=== PATIENT | male | born 1955 | race Caucasian/White ===

== ENCOUNTER 2017-10-25 18:03 | Emergency (ER) | payer OTHER ==
[~2017-10-25] VITALS: Ht 177.8 cm; Wt 97.0 kg
[~2017-10-25 18:03] MED LIST: ANTI-ANXIETY PO; ANTI-HYPERTENSIVE PO; MOTR100T PO; ROBA750T3 PO; SYNT25TA PO; TRAM50 PO
[2017-10-25 18:04] VITALS: BP 156/100; PULSE 62; RESP 18; TEMP 97.8; O2SAT 99
[2017-10-25 18:18] VITALS: BP 156/93; PULSE 75; RESP 18; O2SAT 100
[2017-10-25] MEDS ORDERED: KETOROLAC TROMETHAMINE 30 MG/ML (IVP) VIAL IVP ONE (18:30)
[2017-10-25] MEDS ORDERED: SODIUM CHLORIDE 0.9% FLUSH 10 ML FLUSH IV FLUSH PRN (18:30)
--- NOTE | 2017-10-25 18:30 | PD ---
HPI Chief Complaint: Abdominal Pain Time Seen by Provider: 18:22 Travel History International Travel<30 days: No Contact w/Intl Traveler<30days: No Traveled to known affect area: No History of Present Illness HPI 62-year-old male patient with history of hypertension, hypothyroidism, previous DVT, presents to the ER today for left flank pain with radiation down to the left lower abdomen and groin area, currently being rated at 10 out of 10. He states it hurts with standing up and sitting down. He states this started on its own. He and eyes any vomiting, diarrhea, urinary symptoms, fevers, or any other symptoms. He also noted that over the last day or 2 he has had increased swelling in his left leg as well. Modifying Factors: None Associated Signs & Symptoms: Left flank and left lower quadrant abdominal pain, left leg swelling Risk Factors: None PFSH Past Medical History Anxiety: Yes Diabetes: Yes (PRE-DIABETIC) Deep Vein Thrombosis: Yes Hypertension: Yes Musculoskeletal: Yes (BROKEN FEMUR AND CERVICAL) Thyroid Disease: Yes Past Surgical History Neurologic Surgery: Yes (C-SPINE, UNSURE WHAT WAS DONE) Social History Alcohol Use: No Tobacco Use: Yes (1PPD) Substance Use: Yes (marijuana) Allergies-Medications (Allergen,Severity, Reaction): Coded Allergies: warfarin (Unverified Adverse Reaction, Mild, HIVES, 10/25/17) Reported Meds & Prescriptions Reported Meds & Active Scripts Active Reported [Anti-Anxiety ] 1 Tab PO DAILY [Anti-Hypertensive] 1 Tabcr PO DAILY Review of Systems Except as stated in HPI: all other systems reviewed are Neg Physical Exam Narrative GENERAL: Well-developed elderly white male patient currently in mild distress. Awake and oriented 3. SKIN: Focused skin assessment warm/dry. HEAD: Atraumatic. Normocephalic. EYES: Pupils equal and round. No scleral icterus. No injection or drainage. ENT: No nasal bleeding or discharge. Mucous membranes pink and moist. NECK: Trachea midline. No JVD. Supple. CARDIOVASCULAR: Regular rate and rhythm. No murmur appreciated. RESPIRATORY: No accessory muscle use. Clear to auscultation. Breath sounds equal bilaterally. GASTROINTESTINAL: Abdomen soft, non-tender, nondistended. Hepatic and splenic margins not palpable. GENITOURINARY: Circumcised. Testes descended bilaterally without evidence of rotation. No lesions or erythema. No urethral discharge. BACK: No CVA tenderness. No rash. No point tenderness on palpation of the spine. MUSCULOSKELETAL: No obvious deformities. No clubbing. No cyanosis. There is notable pitting edema the left leg. NEUROLOGICAL: Awake and alert. No obvious cranial nerve deficits. Motor grossly within normal limits. Normal speech. PSYCHIATRIC: Appropriate mood and affect; insight and judgment normal. Data Data Last Documented VS Vital Signs Date Time Temp Pulse Resp B/P (MAP) Pulse Ox O2 Delivery O2 Flow Rate FiO2 10/25/17 18:36 98 Room Air 10/25/17 18:18 75 18 10/25/17 18:04 97.8 Orders Orders Complete Blood Count With Diff (10/25/17 18:) Comprehensive Metabolic Panel (10/25/17:) Lipase (10/25/17:) Urinalysis - C+S If Indicated (10/25/17 18:) Ct Abd/Pel W/O Iv Contrast (10/25/17 18:22) Iv Access Insert/Monitor (10/25/17 18:) Ecg Monitoring (10/25/17:) Oximetry (10/25/17 18:22) Sodium Chloride 0.9% Flush (Ns Flush) (10/25/17 18:30) Ketorolac Inj (Toradol Inj) (10/25/17 18:30) Us Leg Venous Doppler (10/25/17 18:22) Prothrombin Time / Inr (Pt) (10/25/17 18:25) Act Partial Throm Time (Ptt) (10/25/17 18:25) Labs Laboratory Tests Test 10/25/17 18:33 White Blood Count 9.2 TH/MM3 Red Blood Count 4.57 MIL/MM3 Hemoglobin 14.3 GM/DL Hematocrit 40.1 % Mean Corpuscular Volume 87.8 FL Mean Corpuscular Hemoglobin 31.2 PG Mean Corpuscular Hemoglobin Concent 35.6 % Red Cell Distribution Width 13.3 % Platelet Count 262 TH/MM3 Mean Platelet Volume 7.5 FL Neutrophils (%) (Auto) 68.4 % Lymphocytes (%) (Auto) 21.7 % Monocytes (%) (Auto) 7.2 % Eosinophils (%) (Auto) 2.0 % Basophils (%) (Auto) 0.7 % Neutrophils # (Auto) 6.3 TH/MM3 Lymphocytes # (Auto) 2.0 TH/MM3 Monocytes # (Auto) 0.7 TH/MM3 Eosinophils # (Auto) 0.2 TH/MM3 Basophils # (Auto) 0.1 TH/MM3 CBC Comment DIFF FINAL Differential Comment Prothrombin Time 10.3 SEC Prothromb Time International Ratio 1.0 RATIO Activated Partial Thromboplast Time 27.8 SEC Blood Urea Nitrogen 12 MG/DL Creatinine 1.02 MG/DL Random Glucose 85 MG/DL Total Protein 7.7 GM/DL Albumin 3.9 GM/DL Calcium Level 9.0 MG/DL Alkaline Phosphatase 88 U/L Aspartate Amino Transf (AST/SGOT) 21 U/L Alanine Aminotransferase (ALT/SGPT) 34 U/L Total Bilirubin 0.3 MG/DL Sodium Level 135 MEQ/L Potassium Level 4.1 MEQ/L Chloride Level 100 MEQ/L Carbon Dioxide Level 30.0 MEQ/L Anion Gap 5 MEQ/L Estimat Glomerular Filtration Rate 74 ML/MIN Lipase 222 U/L [facility] Medical Decision Making Medical Screen Exam Complete: Yes Emergency Medical Condition: Yes Medical Record Reviewed: Yes Interpretation(s) Laboratory Tests Test 10/25/17 18:33 Sodium Level 135 MEQ/L (136-145) Estimat Glomerular Filtration Rate 74 ML/MIN (>89) Differential Diagnosis Renal colic versus muscular skeletal versus DVT Narrative Course Lab work, and CAT scan was ordered for further evaluation of the abdominal pain. Ultrasound of the left leg was ordered to rule out DVT since patient has previous history. Physician Communication Physician Communication Case is signed out at 7 PM to awaiting completion of workup. Diagnosis Primary Impression: Left flank pain Additional Impression: Left leg swelling Condition: Stable Didi Vegas MD Oct 25, 2017 18:30
[2017-10-25 18:36] VITALS: O2SAT 98
[2017-10-25 18:52] LABS: AUTOMATED NEUTROPHIL # 6.3 TH/MM3 (1.8-7.7); BASOPHIL # 0.1 TH/MM3 (0-0.2); BASOPHIL % 0.7 % (0.0-2.0); EOSINOPHIL # 0.2 TH/MM3 (0-0.4); HEMATOCRIT 40.1 % (39.0-51.0); HEMOGLOBIN 14.3 GM/DL (13.0-17.0); LYMPH % 21.7 % (9.0-44.0); MEAN CELL VOLUME 87.8 FL (80.0-100.0); MEAN CORPUSCULAR HEMOGLOBIN 31.2 PG (27.0-34.0); MEAN CORPUSCULAR HGB CONC 35.6 % (32.0-36.0); MEAN PLATELET VOLUME 7.5 FL (7.0-11.0); MONO % 7.2 % (0.0-8.0); MONOCYTE # 0.7 TH/MM3 (0-0.9); NEUT % 68.4 % (16.0-70.0); PLATELET COUNT 262 TH/MM3 (150-450); RED BLOOD COUNT 4.57 MIL/MM3 (4.50-5.90); RED CELL DISTRIBUTION WIDTH 13.3 % (11.6-17.2); WHITE BLOOD COUNT 9.2 TH/MM3 (4.0-11.0)
[2017-10-25 19:00] LABS: PROTHROMBIN TIME - PATIENT 10.3 SEC (9.8-11.6)
[2017-10-25 19:07] LABS: ALBUMIN 3.9 GM/DL (3.4-5.0); AST (GOT) 21 U/L (15-37); BLOOD UREA NITROGEN 12 MG/DL (7-18); CHLORIDE 100 MEQ/L (98-107); CREATININE 1.02 MG/DL (0.60-1.30); GLOMERULAR FILTRATION RATE 74 ML/MIN (>89); GLUCOSE,RANDOM 85 MG/DL (74-106); LIPASE 222 U/L (73-393); SODIUM (NA) 135 MEQ/L (136-145)
[2017-10-25 19:08] LABS: ALT (GPT) 34 U/L (12-78)
[2017-10-25 19:10] LABS: ALKALINE PHOSPHATASE 88 U/L (45-117); TOTAL BILIRUBIN ADULT 0.3 MG/DL (0.2-1.0); TOTAL PROTEIN 7.7 GM/DL (6.4-8.2)
--- NOTE | 2017-10-25 19:41 | RADRPT ---
EXAM DATE/TIME: 10/25/2017 19:20 [facility] COMPARISON: No previous studies available for comparison. INDICATIONS : Low abdomen pain. ORAL CONTRAST: No oral contrast ingested. RADIATION DOSE: 8.52 CTDIvol (mGy) MEDICAL HISTORY : Deep venous thrombosis. Hypertension. SURGICAL HISTORY : None. ENCOUNTER: Initial ACUITY: 1 day PAIN SCALE: 5/10 LOCATION: Bilateral lower quadrant TECHNIQUE: Volumetric scanning of the abdomen and pelvis was performed. Using automated exposure control and ad justment of the mA and/or kV according to patient size, radiation dose was kept as low as reasonably achievable to obtain optimal diagnostic quality images. DICOM format image data is available electro nically for review and comparison. FINDINGS: LOWER LUNGS: The visualized lower lungs are clear. LIVER: Homogeneous density without lesion. There is no dilation of the biliary tree. No calcified gallston es. SPLEEN: Normal size without lesion. PANCREAS: Within normal limits. KIDNEYS: 2 mm nonobstructing stone left lower pole. Kidneys are otherwise normal. ADRENAL GLANDS: Within normal limits. VASCULAR: There is no aortic aneurysm. BOWEL/MESENTERY: The stomach, small bowel, and colon demonstrate no acute abnormality. There is no free intraperitone al air or fluid. Normal appendix. ABDOMINAL WALL: Within normal limits. RETROPERITONEUM: There is no lymphadenopathy. BLADDER: No wall thickening or mass. REPRODUCTIVE: Calcification of the prostate. INGUINAL: Bilateral small fat-containing inguinal hernias. MUSCULOSKELETAL: No acute bony abnormality demonstrated. CONCLUSION: 1. No obstruction or acute inflammatory changes. 2. Tiny nonobstructing stone lower pole of the left kidney. 3. Small fat-containing bilateral inguinal hernias. Alex Mejia MD on October 25, 2017 at 19:36 Board Certified Radiologist. This report was verified electronically.
--- NOTE | 2017-10-25 19:48 | RADRPT ---
EXAM DATE/TIME: 10/25/2017 18:48 [facility] COMPARISON: No previous studies available for comparison. INDICATIONS : Left leg swelling. MEDICAL HISTORY : Hypertension. Deep venous thrombosis. Hypothyroidism. Diabetes. Anxiety. SURGICAL HISTORY : Fractured femur/hip repair. Cervical spine surgery. ENCOUNTER: Initial ACUITY: 2 day PAIN SCORE: 2/10 LOCATION: Left leg. TECHNIQUE: Venous ultrasound of the leg was performed from the inguinal ligament to the proximal calf. Real-jenni e, color Doppler and spectral tracing, compression and augmentation techniques were used. FINDINGS: Nonocclusive and nonacute appearing thrombus seen in the proximal to mid superficial femoral vein. No occlusive thrombus. Other venous tributaries of the left lower extremity are patent. CONCLUSION: Nonacute appearing nonocclusive DVT of the left superficial femoral vein. Otherwise negative. Alex Mejia MD on October 25, 2017 at 19:44 Board Certified Radiologist. This report was verified electronically.
[2017-10-25 21:53] LABS: BILIRUBIN, URINE NEG (NEG); BLOOD, URINE NEG (NEG); GLUCOSE,URINE NEG (NEG); KETONE, URINE NEG (NEG); NITRITE,URINE NEG (NEG); URINE COLOR YELLOW (YELLW/STRAW); URINE LEUKOCYTE ESTERASE NEG (NEG)
--- NOTE | 2017-10-25 22:02 | PD ---
Physical Exam Narrative Patient signed out the shift on shift change with complaint of lower abdominal pain, pending laboratory studies and CT scan abdomen and pelvis. Patient also notes a painful cord in his left lower leg, with ultrasound of left lower extremity pending. Patient's laboratory examination lesions reviewed, patient has no significant significant after maladies patient's urinalysis is normal white blood cell count normal. CT abdomen and pelvis negative for acute intra-abdominal pathology Ultrasound left lower extremity trigger for superficial vein thrombosis, no deep vein thrombosis noted Data Data Last Documented VS Vital Signs Date Time Temp Pulse Resp B/P (MAP) Pulse Ox O2 Delivery O2 Flow Rate FiO2 10/25/17 18:36 98 Room Air 10/25/17 18:18 75 18 10/25/17 18:04 97.8 Orders Orders Complete Blood Count With Diff (10/25/17 18:22) Comprehensive Metabolic Panel (10/25/17 18:22) Lipase (10/25/17 18:22) Urinalysis - C+S If Indicated (10/25/17 18:22) Ct Abd/Pel W/O Iv Contrast (10/25/17 18:22) Iv Access Insert/Monitor (10/25/17 18:22) Ecg Monitoring (10/25/17 18:22) Oximetry (10/25/17 18:22) Sodium Chloride 0.9% Flush (Ns Flush) (10/25/17 18:30) Ketorolac Inj (Toradol Inj) (10/25/17 18:30) Us Leg Venous Doppler (10/25/17 18:22) Prothrombin Time / Inr (Pt) (10/25/17 18:25) Act Partial Throm Time (Ptt) (10/25/17 18:25) Labs Laboratory Tests Test 10/25/17 18:33 10/25/17 21:25 White Blood Count 9.2 TH/MM3 Red Blood Count 4.57 MIL/MM3 Hemoglobin 14.3 GM/DL Hematocrit 40.1 % Mean Corpuscular Volume 87.8 FL Mean Corpuscular Hemoglobin 31.2 PG Mean Corpuscular Hemoglobin Concent 35.6 % Red Cell Distribution Width 13.3 % Platelet Count 262 TH/MM3 Mean Platelet Volume 7.5 FL Neutrophils (%) (Auto) 68.4 % Lymphocytes (%) (Auto) 21.7 % Monocytes (%) (Auto) 7.2 % Eosinophils (%) (Auto) 2.0 % Basophils (%) (Auto) 0.7 % Neutrophils # (Auto) 6.3 TH/MM3 Lymphocytes # (Auto) 2.0 TH/MM3 Monocytes # (Auto) 0.7 TH/MM3 Eosinophils # (Auto) 0.2 TH/MM3 Basophils # (Auto) 0.1 TH/MM3 CBC Comment DIFF FINAL Differential Comment Prothrombin Time 10.3 SEC Prothromb Time International Ratio 1.0 RATIO Activated Partial Thromboplast Time 27.8 SEC Blood Urea Nitrogen 12 MG/DL Creatinine 1.02 MG/DL Random Glucose 85 MG/DL Total Protein 7.7 GM/DL Albumin 3.9 GM/DL Calcium Level 9.0 MG/DL Alkaline Phosphatase 88 U/L Aspartate Amino Transf (AST/SGOT) 21 U/L Alanine Aminotransferase (ALT/SGPT) 34 U/L Total Bilirubin 0.3 MG/DL Sodium Level 135 MEQ/L Potassium Level 4.1 MEQ/L Chloride Level 100 MEQ/L Carbon Dioxide Level 30.0 MEQ/L Anion Gap 5 MEQ/L Estimat Glomerular Filtration Rate 74 ML/MIN Lipase 222 U/L Urine Color YELLOW Urine Turbidity CLEAR Urine pH 6.0 Urine Specific [place] 1.011 Urine Protein NEG mg/dL Urine Glucose (UA) NEG mg/dL Urine Ketones NEG mg/dL Urine Occult Blood NEG Urine Nitrite NEG Urine Bilirubin NEG Urine Urobilinogen LESS THAN 2.0 MG/DL Urine Leukocyte Esterase NEG Urine RBC LESS THAN 1 /hpf Urine WBC 2 /hpf Microscopic Urinalysis Comment CULT NOT INDICATED MDM Medical Record Reviewed: Yes Supervised Visit with JIMENEZ: Yes Differential Diagnosis Abdominal pain, urinary tract infection, superficial vein thrombosis, malingering Narrative Course No objective criteria for patient's complaint of pain. Recommend Motrin/ Tylenol for pain [id number]. Discharge Diagnosis Primary Impression: Left flank pain Additional Impressions: Left leg swelling Superficial thrombophlebitis Qualified Codes: I80.02 - Phlebitis and thrombophlebitis of superficial vessels of left lower extremity Patient Instructions: Flank Pain (ED), General Instructions, Superficial Thrombophlebitis (ED) Additional Instruction: Motrin for pain. Follow up with your doctor. Return for worsening Disposition: 01 DISCHARGE HOME Condition: Stable Douglas Feliz MD Oct 25, 2017 22:02
== END 2017-10-25 22:30 | disposition home or self-care (01) ==
LOC: NEPE 18:03
DX: R10.9 Unspecified abdominal pain (principal); M79.89 Other specified soft tissue disorders; E03.9 Hypothyroidism, unspecified; I10 Essential (primary) hypertension; E11.9 Type 2 diabetes mellitus without complications; Z72.0 Tobacco use
CPT/HCPCS: 74176; 80053; 81001; 83690; 85025; 85610; 85730; 93971; 96374; 99285; J1885